=== PATIENT | female | born 1950 | race Caucasian/White ===

== ENCOUNTER 2017-05-07 04:22 | Emergency (ER) | payer MEDICARE, BC ==
[2017-05-07] MEDS ORDERED: Aspirin 81 MG Tab.Chew PO ONE (04:58)
[2017-05-07] MEDS ORDERED: Codeine/guaiFENesin 100mg-10 MG/5 ML Syrup 10 ML Cup PO ONE (05:01)
--- NOTE | 2017-05-07 05:03 | EDM.PDOC ---
ED HPI GENERAL MEDICAL PROBLEM - General Chief Complaint: Respiratory Problem Stated Complaint: SINUS INFECTION Time Seen by Provider: 05/07/17 04:54 Source of Information: Reports: Patient, RN Notes Reviewed History Limitations: Reports: No Limitations - History of Present Illness INITIAL COMMENTS - FREE TEXT/NARRATIVE: 66-year-old female presents emergency department day complaint of cough, shortness of breath, chest pain states been ill for about 3 days chest pain started about a day and a half ago she describes it as constant pressure has had fevers no nausea vomiting no diaphoresis negative for tobacco use negative for cardiac history Generalized Pain Score (Numeric/FACES): 5 - Related Data Allergies Allergy/AdvReac Type Severity Reaction Status Date / Time amoxicillin [From Augmentin] Allergy Hives Verified 05/07/17 04:32 clavulanic acid Allergy Hives Verified 05/07/17 04:32 [From Augmentin] cyclobenzaprine Allergy Hives Verified 05/07/17 04:32 Iodinated Contrast- Oral and Allergy Anaphylactic Verified 05/07/17 04:32 IV Dye Shock Sulfa (Sulfonamide Allergy Hives Verified 05/07/17 04:32 Antibiotics) Home Meds: Home Meds DULoxetine HCl [Duloxetine HCl] 60 mg PO DAILY 05/07/17 [History] Fluticasone Propionate [Flonase] 2 spray AVNI DAILY 05/07/17 [History] Levothyroxine 75 mcg PO ACBREAKFAST 05/07/17 [History] Losartan [Cozaar] 50 mg PO DAILY 05/07/17 [History] Omeprazole [Omeprazole] 20 mg PO DAILY 05/07/17 [History] atorvaSTATin [Lipitor] 10 mg PO BEDTIME 05/07/17 [History] metFORMIN [Glucophage] 500 mg PO BIDMEALS 05/07/17 [History] valACYclovir [Valtrex] 500 mg PO DAILY PRN 05/07/17 [History] Past Medical History HEENT History: Reports: Sinusitis Cardiovascular History: Reports: High Cholesterol, Hypertension Gastrointestinal History: Reports: GERD Musculoskeletal History: Reports: Arthritis Psychiatric History: Reports: Depression Endocrine/Metabolic History: Reports: Diabetes, Type II, Hypoparathyroidism - Infectious Disease History Infectious Disease History: Reports: Herpes - Past Surgical History HEENT Surgical History: Reports: Adenoidectomy, Tonsillectomy, Other (See Below) Other HEENT Surgeries/Procedures: eye lift Musculoskeletal Surgical History: Reports: Hip Replacement Social & Family History - Tobacco Use Smoking Status *Q: Never Smoker - Caffeine Use Caffeine Use: Reports: Coffee - Alcohol Use Days Per Week of Alcohol Use: 7 Number of Drinks Per Day: 1 Total Drinks Per Week: 7 - Recreational Drug Use Recreational Drug Use: No ED ROS GENERAL - Review of Systems Review Of Systems: See Below Constitutional: Reports: Fever, Chills HEENT: Reports: No Symptoms Respiratory: Reports: Shortness of Breath, Pleuritic Chest Pain, Cough, Sputum Cardiovascular: Reports: Chest Pain, Dyspnea on Exertion GI/Abdominal: Reports: No Symptoms : Reports: No Symptoms Musculoskeletal: Reports: No Symptoms Skin: Reports: No Symptoms Neurological: Reports: No Symptoms ED EXAM, GENERAL - Physical Exam Exam: See Below Free Text/Narrative:: General: Female, not in any distress, alert and oriented x3 HEENT: head is atraumatic normocephalic, eyes pupils equal round reactive to light, sclera clear no conjunctivitis appreciated. Ears tympanic membranes clear and starks landmarks and light reflex are present bilaterally canals are clear. Nose no septal deviation, nares are clear, no blood present. Mouth mucosa is moist and pink no erythema or exudate noted in soft palate, tongue is midline uvula is midline, dentition is intact. Neck: Supple no thyromegaly no tracheal deviation. Nodes: Cervical nodes subclavicular nodes nontender no palpable lymphadenopathy noted. Lungs: clear to auscultation bilaterally with symmetrical respirations, no adventitious noise appreciated. CV: Regular rate and rhythm S1 and S2 appreciated no murmurs rubs or gallops noted. Abdomen: Soft, nontender, no palpable masses or organomegaly appreciated, no distention no guarding bowel sounds are present, . Neuro: Cranial nerves II through XII grossly intact Skin: Warm and dry, intact Extremities: No lower extremity edema appreciated, Course - Vital Signs Last Recorded V/S: Last Vital Signs Temp 96.3 F 05/07/17 04:29 Pulse 89 05/07/17 04:29 Resp 16 05/07/17 04:29 BP 134/71 05/07/17 04:29 Pulse Ox 92 L 05/07/17 04:29 - Orders/Labs/Meds Orders: Active Orders 24 hr Category Date Time Status Cardiac Monitoring [RC] .As Directed Care 05/07/17 04:58 Active EKG Documentation Completion [RC] ASDIRECTED Care 05/07/17 05:00 Active Chest 2V [CR] Stat Exams 05/07/17 05:00 Taken EKG 12 Lead [EK] Stat Ther 05/07/17 05:00 Ordered Labs: Laboratory Tests 05/07/17 05/07/17 Range/Units 05:21 05:21 WBC 6.6 (4.5-11.0) K/uL RBC 4.29 (3.30-5.50) M/uL Hgb 13.5 (12.0-15.0) g/dL Hct 40.8 (36.0-48.0) % MCV 95 (80-98) fL MCH 32 H (27-31) pg MCHC 33 (32-36) % Plt Count 216 (150-400) K/uL Neut % (Auto) 67 H (36-66) % Lymph % (Auto) 22 L (24-44) % [place] % (Auto) 10 H (2-6) % Eos % (Auto) 1 L (2-4) % Baso % (Auto) 0 (0-1) % Sodium 141 (140-148) mmol/L Potassium 3.4 L (3.6-5.2) mmol/L Chloride 103 (100-108) mmol/L Carbon Dioxide 25 (21-32) mmol/L Anion Gap 16.4 H (5.0-14.0) mmol/L BUN 14 (7-18) mg/dL Creatinine 0.9 (0.6-1.0) mg/dL Est Cr Clr Drug Dosing 48.63 mL/min Estimated GFR (MDRD) > 60 (>60) Glucose 118 H (74-106) mg/dL Calcium 9.4 (8.5-10.1) mg/dL Total Bilirubin 0.5 (0.2-1.0) mg/dL AST 15 (15-37) U/L ALT 20 (12-78) U/L Alkaline Phosphatase 102 (46-116) U/L CK-MB (CK-2) 0.5 (0-3.6) mg/mL Troponin I < 0.017 (0.000-0.056) ng/mL Total Protein 6.6 (6.4-8.2) g/dL Albumin 3.6 (3.4-5.0) g/dL Globulin 3.0 (2.3-3.5) g/dL Albumin/Globulin Ratio 1.2 (1.2-2.2) Meds: Medications Discontinued Medications Generic Name Dose Route Start Last Admin Trade Name Jayson PRN Reason Stop Dose Admin Aspirin 324 mg 05/07/17 04:58 05/07/17 05:04 Aspirin PO 05/07/17 04:59 324 mg ONETIME ONE Administration Guaifenesin/Codeine Phosphate 10 ml 05/07/17 05:01 05/07/17 05:19 Robitussin Ac PO 05/07/17 05:02 10 ml ONETIME ONE Administration Departure - Departure Time of Disposition: 06:18 Disposition: Home, Self-Care 01 Condition: Good Clinical Impression: Bronchitis - Discharge Information Referrals: Penny Shaw MD [Primary Care Provider] - Forms: ED Department Discharge Additional Instructions: Take full course of antibiotics, use Robitussin-AC as needed help suppress cough , Please followup with your primary care provider in 3-5 days if not better, please call return to the emergency department with worsening of symptoms. - My Orders Last 24 Hours: My Active Orders 05/07/17 04:58 Cardiac Monitoring [RC] .As Directed 05/07/17 05:00 EKG Documentation Completion [RC] ASDIRECTED Chest 2V [CR] Stat EKG 12 Lead [EK] Stat - Assessment/Plan Last 24 Hours: My Active Orders 05/07/17 04:58 Cardiac Monitoring [RC] .As Directed 05/07/17 05:00 EKG Documentation Completion [RC] ASDIRECTED Chest 2V [CR] Stat EKG 12 Lead [EK] Stat Plan: Assessment Acuity = acute Site and laterality = bronchitis Etiology = bacterial cause Manifestations = cough Location of injury = Home Lab values = CBC unremarkable potassium low at 3.4 consistent hypokalemia, EKG demonstrates a sinus rhythm no ST changes or depression, chest x-ray I did review films myself I cannot appreciate any acute process, the official read from radiology is pending Plan I did review lab work chest x-ray EKG results with her she had good relief with the Robitussin-AC provided in the ED discharge home with a Z-Charles and Robitussin- AC 10 mL Patient was in agreement with the plan all questions were answered, they were instructed to return to the emergency department or call for worsening symptoms. This note was dictated using [employer] voice recognition software please call with any questions.
--- NOTE | 2017-05-07 08:49 | CR ---
Chest 2V INDICATION: Chest Pain FINDINGS: Negative chest.
== END 2017-05-07 06:47 | disposition home or self-care (01) ==
LOC: JP.ED 04:22
DX: J40 Bronchitis, not specified as acute or chronic (principal); I10 Essential (primary) hypertension; E11.9 Type 2 diabetes mellitus without complications; E78.00 Pure hypercholesterolemia, unspecified; Z79.84 Long term (current) use of oral hypoglycemic drugs; Z79.899 Other long term (current) drug therapy; Z88.1 Allergy status to other antibiotic agents; Z88.2 Allergy status to sulfonamides; Z91.041 Radiographic dye allergy status
CPT/HCPCS: 36415; 71020; 80053; 82553; 84484; 85025; 93005; 99284; A9270; 93010

== ENCOUNTER 2022-06-28 11:56 | Emergency (ER) | payer MEDICARE, BC | END 2022-06-28 14:05 | disposition home or self-care (01) | LOC: JP.ED 11:56 | DX: K59.04 Chronic idiopathic constipation (principal); E78.00 Pure hypercholesterolemia, unspecified; I10 Essential (primary) hypertension; K21.9 Gastro-esophageal reflux disease without esophagitis; E11.9 Type 2 diabetes mellitus without complications; E03.9 Hypothyroidism, unspecified; Z88.0 Allergy status to penicillin; Z91.041 Radiographic dye allergy status; Z88.2 Allergy status to sulfonamides; Z79.899 Other long term (current) drug therapy; Z79.84 Long term (current) use of oral hypoglycemic drugs | CPT/HCPCS: 74018; 99283 ==